=== PATIENT | male | born 1995 | race Caucasian/White ===

== ENCOUNTER 2016-12-19 22:22 | Emergency (ER) | payer BC ==
[~2016-12-19] VITALS: Ht 177.8 cm; Wt 108.9 kg
[2016-12-20] MEDS ORDERED: METHOCARBAMOL 750 MG TAB PO ONE
[2016-12-20] MEDS ORDERED: NAPROXEN 250 MG TAB PO ONE
[2016-12-20] MEDS ORDERED: METHOCARBAMOL 500 MG TAB PO ONE (00:15)
[2016-12-20] MEDS ORDERED: ROBA500T PO (00:43)
[2016-12-20] MEDS ORDERED: NAPR500T PO (00:43)
[2016-12-20 00:46] VITALS: BP 135/92
--- NOTE | 2016-12-20 00:50 | REPUSA ---
CLINICAL HISTORY: Edema. COMMENTS: Real time sonography with duplex doppler of the right lower extremity was performed with attention to the major deep venous structures. Evaluation reveals the right common femoral, superficial femoral and popliteal veins to be completely compressible without intraluminal thrombus. There is normal spontaneous phasic flow and augmentation . The greater saphenous/common femoral vein junction is patent. No reflux was noted. IMPRESSION: No evidence of DVT in right lower extremity. Thank you for your kind referral of this patient.
--- NOTE | 2016-12-20 14:30 | REP ---
RIGHT KNEE, FIVE VIEWS: HISTORY: Pain. There is no acute fracture or dislocation. The joint spaces are normal in appearance. A bone island is present in the tibia. IMPRESSION: There is no acute fracture or dislocation. Signed by Erasto Hicks MD 12/20/2016 02:31 P
== END 2016-12-20 00:50 | disposition home or self-care (01) ==
LOC: M ED 23:39
DX: M79.661 Pain in right lower leg (principal)